=== PATIENT | male | born 1935 | race Caucasian/White ===

== ENCOUNTER → 2016-10-08 | Outpatient (REF) | LOC: ZLAB.WCH 15:16 | DX: Z01.89 Encounter for other specified special examinations (principal) ==

== ENCOUNTER → 2016-10-12 | Outpatient (REF) ==
[2016-10-12 12:51] LABS: THYROID STIMULATING HORMONE 7.08 uIU/mL (0.465-4.680)
== END ==
LOC: ZLAB.WCH 11:49
PROVIDERS: Physician Assistant
DX: Z01.89 Encounter for other specified special examinations (principal)

== ENCOUNTER → 2016-11-27 | Outpatient (REF) | LOC: ZLAB.WCH 12:42 | DX: Z01.89 Encounter for other specified special examinations (principal) ==